=== PATIENT | female | born 1975 | race Caucasian/White ===

== ENCOUNTER 2023-06-30 16:54 | Emergency (ER) | payer SELFPAY ==
[~2023-06-30] VITALS: Ht 165.1 cm; Wt 86.0 kg
[2023-06-30 17:03] VITALS: O2SAT 99
[2023-06-30 17:28] LABS: BASOPHILS % 1.4 % (0.0-2.0); EOSINOPHILS % 4.3 % (0.0-5.0); HEMOGLOBIN. 10.5 g/dL (12.0-16.0); LYMPHOCYTES % 27.6 % (20.0-50.0); MEAN CORPUSCULAR HEMOGLOBIN 24.5 pg (28.0-32.0); MEAN CORPUSCULAR VOLUME 74.7 fL (81.0-99.0); MEAN PLATELET VOLUME 8.4 fl (7.4-10.4); MONOCYTES % 8.6 % (2.0-8.0); NEUTROPHILS % 58.1 % (40.0-76.0); PLATELET 376 x1000/uL (130-400); RED BLOOD CELL COUNT 4.29 mill/uL (4.2-5.4); RED CELL DISTRIBUTION WIDTH 16.9 % (11.6-14.6)
[2023-06-30 17:38] LABS: CHLORIDE 101 mEq/L (98-107)
[2023-06-30 17:49] LABS: ETHANOL BLOOD 258 mg/dL (-10)
[2023-06-30] MEDS ORDERED: ONDANSETRON HCL 4MG/2ML INJ IV ONE (18:00)
[2023-06-30] MEDS ORDERED: SODIUM CHLORIDE 0.9% 1,000 ML IV ONE (18:00)
[2023-06-30 19:34] VITALS: BP 156/96; PULSE 83; RESP 20; TEMP 98.1
== END 2023-06-30 19:37 | disposition home or self-care (01) ==
LOC: ER 16:54
DX: F10.129 Alcohol abuse with intoxication, unspecified (principal); Y90.8 Blood alcohol level of 240 mg/100 ml or more; E86.0 Dehydration; F41.9 Anxiety disorder, unspecified; I10 Essential (primary) hypertension
CPT/HCPCS: 80053; 80320; 85025; 84484; 36415; 71045; 93005; 99285; J7030; G0480